=== PATIENT | female | born 1990 | race Caucasian/White ===

== ENCOUNTER 2017-03-29 07:58 | Emergency (ER) | payer BC ==
[2017-03-29 08:05] VITALS: RESP 16; TEMP 99
--- NOTE | 2017-03-29 08:28 | ED PDOC ---
Arrival/HPI - General Historian: Patient - History of Present Illness Time/Duration: < week (2 days ) Symptom Course: Unchanged Severity Level: Mild Activities at Onset: Light <Del Greer - Last Filed: 03/29/17 18:45> <Rocky Powell - Last Filed: 03/29/17 23:48> - General Chief Complaint: Psychiatric Evaluation Time Seen by Provider: 03/29/17 08:08 - History of Present Illness Narrative History of Present Illness (Text): 03/29/17 08:22 Greer Mott is a 26 year old female who presents to the emergency department complaining of 2 day duration of visual hallucinations. Patient also states she has auditory hallucinations, which are chronic. Denies any command hallucinations, suicidal ideation and homicidal ideation. Denies any somatic complaints. (Del Greer) Past Medical History - Provider Review Nursing Documentation Reviewed: Yes - Cardiac Hx Cardiac Disorders: No - Pulmonary Hx Respiratory Disorders: No - Neurological Hx Neurological Disorder: No - HEENT Hx HEENT Disorder: No - Renal Hx Renal Disorder: No - Endocrine/Metabolic Hx Endocrine Disorders: No - Hematological/Oncological Hx Blood Disorders: No - Integumentary Hx Dermatological Disorder: No - Musculoskeletal/Rheumatological Hx Musculoskeletal Disorders: No - Gastrointestinal Hx Gastrointestinal Disorders: No - Genitourinary/Gynecological Hx Genitourinary Disorders: No - Psychiatric Hx Psychophysiologic Disorder: Yes Hx Psychosis: Yes Hx Substance Use: No <Del Greer - Last Filed: 03/29/17 18:45> Family/Social History - Physician Review Nursing Documentation Reviewed: Yes Family/Social History: No Known Family HX Smoking Status: Never Smoked Hx Alcohol Use: No Hx Substance Use: No <Del Greer - Last Filed: 03/29/17 18:45> Allergies/Home Meds <Del Greer - Last Filed: 03/29/17 18:45> <Rocky Powell - Last Filed: 03/29/17 23:48> Allergies/Adverse Reactions: Allergies No Known Allergies Allergy (Verified 03/29/17 08:02) Home Medications: Home Meds Medication Instructions Recorded Confirmed Sertraline [Zoloft] 50 mg PO DAILY 03/29/17 03/29/17 Physical Exam Vital Signs Reviewed: Yes Temperature: Afebrile Blood Pressure: Normal Pulse: Regular Respiratory Rate: Normal Appearance: Positive for: Well-Appearing, Non-Toxic, Comfortable Pain Distress: None Mental Status: Positive for: Alert and Oriented X 3 <Del Greer - Last Filed: 03/29/17 18:45> <Rocky Powell - Last Filed: 03/29/17 23:48> - Physical Exam Narrative Physical Exam (Text): - Review of Systems Constitutional: Normal. absent: Fatigue, Weight Change, Fevers Eyes: Normal ENT: Normal Respiratory: Normal absent: SOB, Cough, Sputum Cardiovascular: Normal absent: Chest pain, Palpitations, Syncope Gastrointestinal: Normal absent: Abdominal pain, Diarrhea, Nausea, Vomiting Genitourinary: Normal. absent: Dysuria, Frequency, Hematuria Musculoskeletal: Normal. absent: Arthralgias, Back Pain, Neck Pain Skin: Normal Neurological: Normal absent: Focal Weakness Endocrine: Normal Hemo/Lymphatic: Normal Psychiatric: Auditory and visual hallucinations - Physical exam Patient appears age appropriate, speaking full sentences without difficulty - Systems Exam Head: Present: Atraumatic, Normocephalic Pupils: Present: PERRL Extraocular Muscles: Present: EOMI Conjunctiva: Present: Normal Mouth: Present: Moist Mucous Membranes Neck: Present: Normal Range of Motion. No: MIDLINE TENDERNESS, Paraspinal Tenderness Respiratory/Chest: Present: Clear to Auscultation, Good Air Exchange. No: Respiratory Distress, Accessory Muscle Use, Tachypneic Cardiovascular: Present: Regular Rate and Rhythm, Normal S1, S2, Peripheral Pulses Present. No: Murmurs Abdomen: Present: Normal Bowel Sounds, No: Tenderness, Peritoneal Signs, Rebound, Guarding, Distention Back: Present: Normal Inspection. No: Midline Tenderness, Paraspinal Tenderness Upper Extremity: Present: Normal Inspection. No: Cyanosis, Edema Lower Extremity: Present: Normal Inspection. No: Edema Neurological: Present: GCS=15, Speech Normal, cranial nerves II through XII fully intact with no cerebellar abnormality, neuro-sensory fully intact. No focal neurological deficits. Skin: Present: Warm, Dry, Normal Color. No: Rashes Lymphatic: Present: OX3, NI, NC Psychiatric: Present: Alert, Oriented x 3, visual and auditory hallucinations Absent: Suicidal and homicidal ideations. (Del Greer) Vital Signs Temp Pulse Resp BP Pulse Ox 03/29/17 23:22 70 16 126/69 98 03/29/17 19:26 72 16 130/60 98 03/29/17 17:16 80 16 124/72 98 03/29/17 15:09 82 16 124/70 98 03/29/17 12:41 75 16 126/61 97 03/29/17 10:10 81 16 118/80 97 03/29/17 08:04 99 F 74 16 114/76 97 Medical Decision Making - Lab Interpretations I have reviewed the lab results: Yes - EKG Interpretation Interpreted by ED Physician: Yes Type: 12 lead EKG <Del Greer - Last Filed: 03/29/17 18:45> <Rocky Powell - Last Filed: 03/29/17 23:48> ED Course and Treatment: 03/29/17 08:29 Impression: A 26 year old female who presents to the emergency department complaining of visual and auditory hallucinations. Denies any suicidal or homicidal hallucinations. Plan: -- Labs -- Alcohol level -- Drug screen -- POC Urine -- Urinalysis -- Reassess and disposition Progress Notes: 03/29/17 08:39 EKG interpreted by me: NSR @ 65 bpm. J-point elevations. Normal intervals. (Patient denies chest pain, shortness of breath, and AGUIRRE) 03/29/17 10:34 seen by PES, pt signed in voluntarily, no beds 03/29/17 10:34 patient medically cleared for psychiatric admission/transfer 03/29/17 18:27 pt in no distress was reevaluated by PES, no beds at [facility] on behavioral health floor, pending outside facility acceptance 03/29/17 19:[address] Powell in stable condition (Del Greer) 03/29/17 19:00 Case endorsed to me by Dr. Greer, pending transfer. 03/29/17 21:50 Pt accepted for transfer to [facility] for bipolar disorder. Pt stable for transfer at this time. 03/29/17 23:46 Pt accepted on transfer to [facility] psychiatric unit by Dr. Moscoso. Pt stable for transfer. (Sherry,Rocky) - Lab Interpretations Lab Results: 03/29/17 08:42 03/29/17 08:42 Lab Results 03/29/17 09:58: Urine Opiates Screen Negative, Urine Methadone Screen Negative, Ur Barbiturates Screen Negative, Ur Phencyclidine Scrn Negative, Ur Amphetamines Screen Negative, U Benzodiazepines Scrn Negative, U Oth Cocaine Metabols Negative, U Cannabinoids Screen Negative 03/29/17 09:58: Urine Color Yellow, Urine Appearance Clear, Urine pH 7.0, Ur Specific [place] 1.010, Urine Protein Negative, Urine Glucose (UA) Negative, Urine Ketones Negative, Urine Blood Negative, Urine Nitrate Negative, Urine Bilirubin Negative, Urine Urobilinogen 0.2, Ur Leukocyte Esterase Negative 03/29/17 08:42: Alcohol, Quantitative < 10 03/29/17 08:42: Salicylates < 1 L, Acetaminophen < 10.0 L 03/29/17 08:42: Sodium 140, Potassium 3.9, Chloride 105, Carbon Dioxide 25, Anion Gap 14, BUN 9, Creatinine 0.5, Est GFR ( Amer) > 60, Est GFR (Non- Af Amer) > 60, Random Glucose 96, Calcium 9.5, Total Bilirubin 0.3, AST 22, ALT 31, Alkaline Phosphatase 75, Total Protein 7.9, Albumin 4.1, Globulin 3.9, Albumin/Globulin Ratio 1.1 03/29/17 08:42: WBC 7.0, RBC 4.60, Hgb 10.2 L, Hct 32.9 L, MCV 71.5 L, MCH 22.2 L, MCHC 31.0, RDW 15.8 H, Plt Count 285, MPV 8.4, Gran % 69.6 H, Lymph % (Auto) 24.2, [place] % (Auto) 4.8, Eos % (Auto) 1.1 L, Baso % (Auto) 0.3, Gran # 4.88, Lymph # 1.7, [place] # 0.3, Eos # 0.1, Baso # 0.02 - RAD Interpretation Radiology Orders: 03/29/17 10:35 CHEST PORTABLE [RAD] Stat - Medication Orders Current Medication Orders: Haloperidol (Haldol) 0.5 mg PO [facility] ALEJANDRA PRN Reason: Protocol Last Admin: 06/18/17 10:17 Dose: 0.5 mg Lorazepam (Ativan) 0.5 mg PO [facility] ALEJANDRA PRN Reason: Protocol Last Admin: 03/29/17 10:16 Dose: Discontinued Medications Lorazepam (Ativan) 2 mg PO ONCE ONE PRN Reason: Protocol Stop: 03/29/17 08:56 Last Admin: 03/29/17 09:13 Dose: 2 mg - Scribe Statement The provider has reviewed the documentation as recorded by the Scribe <Del Greer - Last Filed: 03/29/17 18:45> <Rocky Powell - Last Filed: 03/29/17 23:48> - Scribe Statement Bubba Roque (Del Greer) Provider Attestation: Provider Scribe Attestation: All medical record entries made by the Scribe were at my direction and personally dictated by me. I have reviewed the chart and agree that the record accurately reflects my personal performance of the history, physical exam, medical decision making, and the department course for this patient. I have also personally directed, reviewed, and agree with the discharge instructions and disposition. (Del Greer) Disposition/Present on Arrival - Present on Arrival Any Indicators Present on Arrival: No History of DVT/PE: No History of Uncontrolled Diabetes: No Urinary Catheter: No History of Decub. Ulcer: No History Surgical Site Infection Following: None - Disposition Have Diagnosis and Disposition been Completed?: Yes Disposition Time: 18:46 <Del Greer - Last Filed: 03/29/17 18:45> - Present on Arrival Any Indicators Present on Arrival: No History of DVT/PE: No History of Uncontrolled Diabetes: No Urinary Catheter: No History of Decub. Ulcer: No History Surgical Site Infection Following: None - Disposition Have Diagnosis and Disposition been Completed?: Yes Disposition Time: 23:48 <Rocky Powell - Last Filed: 03/29/17 23:48> - Disposition Diagnosis: Medical clearance for psychiatric admission, Bipolar disorder Disposition: Trans to Other Acute Care [facility] Patient Problems: Current Active Problems Problem Status Onset Medical clearance for psychiatric admission Acute Condition: STABLE Referrals: PCP,NO [Primary Care Provider] - Follow up with primary
[2017-03-29 08:43] LABS: ADD MANUAL DIFF? NO
[2017-03-29 08:50] LABS: BASO # 0.02 K/mm3 (0.0-2.0); BASO % 0.3 % (0.0-3.0); EOS # 0.1 (0.0-0.7); EOS % 1.1 % (1.5-5.0); GRAN # 4.88 (1.4-6.5); GRAN % 69.6 % (50.0-68.0); HEMATOCRIT 32.9 % (36.0-48.0); LYMPH # 1.7 (1.2-3.4); LYMPH % 24.2 % (22.0-35.0); MEAN CELL VOLUME 71.5 fL (80.0-105.0); MEAN CORPUSCULAR HEMOGLOBIN 22.2 pg (25.0-35.0); MEAN PLATELET VOLUME 8.4 fl (7.0-11.0); MONO # 0.3 (0.1-0.6); MONO % 4.8 % (1.0-6.0); PLATELET COUNT 285 10^3/uL (120.0-450.0); RED CELL DISTRIBUTION WIDTH 15.8 % (11.5-14.5)
[2017-03-29 09:10] LABS: ALB/GLOB RATIO 1.1 (1.1-1.8); ALKALINE PHOSPHATASE 75 U/L (38-133); ALT/SGPT 31 U/L (7-56); AST/SGOT 22 U/L (15-39); BILIRUBIN,TOTAL 0.3 mg/dL (0.2-1.3); BLOOD UREA NITROGEN 9 mg/dL (7-21); CALCIUM 9.5 mg/dL (8.4-10.5); CARBON DIOXIDE 25 mmol/L (21-33); CHLORIDE 105 mmol/L (98-107); GFR AFRICAN-AMERICAN > 60; GLUCOSE,RANDOM 96 mg/dL (70-110); POTASSIUM 3.9 mmol/L (3.6-5.0); SODIUM 140 mmol/L (132-148); TOTAL PROTEIN 7.9 g/dL (5.8-8.3)
[2017-03-29 10:11] LABS: URINE BILIRUBIN NEGATIVE (NEGATIVE); URINE BLOOD NEGATIVE (NEGATIVE); URINE GLUCOSE (UA) NEGATIVE (NEGATIVE); URINE KETONE NEGATIVE (NEGATIVE); URINE LEUKOCYTE ESTERASE NEGATIVE Leu/uL (NEGATIVE); URINE PROTEIN NEGATIVE mg/dL (<30 mg/dL); URINE UROBILINOGEN 0.2 E.U./dL (<1 E.U./dL)
[2017-03-29 10:12] LABS: URINE APPEARANCE CLEAR (CLEAR); URINE COLOR YELLOW (YELLOW)
--- NOTE | 2017-03-29 11:14 | RAD ---
HISTORY: med clearance COMPARISON: Chest x-ray performed 03/29/17 TECHNIQUE: Chest, one view. FINDINGS: LUNGS: No focal consolidation. Please note that chest x-ray has limited sensitivity for the detection of pulmonary masses. PLEURA: No significant pleural effusion identified. No definite pneumothorax . CARDIOVASCULAR: Heart size appears within normal limits. OSSEOUS STRUCTURES: No acute osseous abnormality identified. VISUALIZED UPPER ABDOMEN: Unremarkable. OTHER FINDINGS: None. IMPRESSION: No focal consolidation, significant pleural effusion, or definite pneumothorax identified.
[2017-03-29 15:12] VITALS: O2SAT 98
--- NOTE | 2017-03-29 21:55 | CARD ---
APPROVED REPORT EKG Measurement Heart [id number] <Conclusion> Normal sinus rhythm ST elevation, consider early repolarization, pericarditis, or injury Abnormal ECG
[2017-03-29 23:22] VITALS: BP 126/69; PULSE 70
== END 2017-03-29 23:59 | disposition short-term general hospital (02) ==
LOC: ED 07:58
DX: F31.9 Bipolar disorder, unspecified (principal)
CPT/HCPCS: 71010; 80053; 81003; 85025; 90791; 93005; 99285; G0480